=== PATIENT | female | born 1970 | race Caucasian/White ===

== ENCOUNTER → 2016-08-28 | Outpatient (CLI) | payer BC ==
[~2016-08-28] MED LIST: CITA20TA4 PO; IBUP-1050 PO; LISI-461 PO; NORE1TAB50 PO
--- NOTE | 2016-08-28 16:18 | MAMMOGRAPHY REPORT ---
BILATERAL DIGITAL SCREENING MAMMOGRAM TOMOSYNTHESIS WITH CAD: 08/28/2016 CLINICAL HISTORY: Routine screening. Patient has no complaints. TECHNIQUE: Breast tomosynthesis in addition to standard 2D mammography was performed. Current study was also evaluated with a Computer Aided Detection (CAD) system. COMPARISON: Comparison is made to exams dated: 08/23/2015 mammogram, 08/19/2014 mammogram, 08/25/2013 ultrasound, 08/25/2013 mammogram, 08/15/2012 mammogram, and 08/14/2011 mammogram - [facility]. BREAST COMPOSITION: The tissue of both breasts is heterogeneously dense, which may obscure small ma sses. FINDINGS: The parenchymal pattern is similar to prior exams. No developing mass, architectural dis tortion or cluster of suspicious microcalcifications is seen in either breast. IMPRESSION: ACR BI-RADS CATEGORY 2: BENIGN There is no mammographic evidence of malignancy. A 1 year screening mammogram is recommended. The p atient will receive written notification of the results. Approximately 10% of breast cancers are not detected with mammography. A negative mammographic repor t should not delay biopsy if a clinically suggestive mass is present. Michaela Bell M.D. ay/:08/28/2016 15:51:47 Film Archivist: Jada SOMERS(R)(M[place]), [facility] letter sent: Normal 1/2 BI-RADS Code: ACR BI-RADS Category 2: Benign
== END | disposition home or self-care (01) ==
LOC: C.MAMM 11:01
PROVIDERS: ATTEND Family Medicine
DX: Z12.31 Encounter for screening mammogram for malignant neoplasm of breast (principal)

== ENCOUNTER → 2016-09-27 | Day surgery (SDC) | payer BC ==
[2016-09-13 09:50] VITALS: Ht 157.5 cm; Wt 84.5 kg
[2016-09-18 11:17] LABS: BASO % 0.2 %; BASO ABS # 0.02 K/uL (0-0.2); COMPLETE YES; IG% 0.1 %; LYMPH % 25.5 %; LYMPH ABS # 2.05 K/uL (1.2-3.4); MEAN CELL VOLUME 89.8 fL (80-100); MEAN CORPUSCULAR HEMOGLOBIN 30.3 pg (25-34); MEAN CORPUSCULAR HGB CONC 33.7 g/dl (32-36); MEAN PLATELET VOLUME 10.4 fL (7.4-10.4); MONO % 6.6 %; NEUT % 65.6 %; PLATELET COUNT 312 K/uL (130-400); RED BLOOD COUNT 4.79 M/uL (4.2-5.4); WHITE BLOOD COUNT 8.04 K/uL (4.8-10.8)
--- NOTE | 2016-09-20 14:00 | HISTORY & PHYSICAL EXAMINATION ---
DATE OF ADMISSION: 09/27/2016 CHIEF COMPLAINT: Endocervical mass. HISTORY OF PRESENT ILLNESS: The patient is a 46-year-old 0 who has been a patient of Dr. Genao and now presents to me for annual exam. She is premenopausal. She notes her menstrual periods have been normal and her cycles have been regular, occurring every 28 days. She notes that her periods last for 3-5 days. Additional history at this time, the patient has a lot of discharge before and after her period. She has a history of laparotomy for endometriosis and on review of that report from over 20 years ago she had bilateral ovarian cystectomies, significant lysis of adhesions, ureterolysis and resection and reanastomosis of her bowel. She has been on oral contraceptives since that time with good response until lately. For the last several months, she has been having pain in the right lower quadrant. She notes some brown spotting if she does any heavy lifting. She has persistent blood in her urine. She needs an ultrasound for her kidney. She has pain with intercourse that has increased over this time as well. The patient also recently was started on blood pressure medications for hypertension and we discussed that she would need to come off of her oral contraceptive pills because of this new contraindication. In the process of the workup of her pain, the patient underwent a pelvic ultrasound. This revealed a very small uterine with a lining that measured 6.8 mm. The myometrium is heterogeneous with no obvious masses. The endometrium was difficult to determine. There was noted to be a 2.2 x 0.9 x 0.5 cm mass within the cervix. The right ovary was not seen. The left ovary was small and normal. I was unable to perform an SIS on this patient because of cervical stenosis nor was I able to dilate the cervix and the procedure was abandoned. We had a long discussion about what to do from this point. I do not think she needs a D\T\C hysteroscopy to evaluate the mass and obtain an evaluation of the endometrium with a biopsy. PAST OBSTETRICAL AND GYNECOLOGICAL HISTORY: As noted above. ALLERGIES: No known drug allergies. MEDICATIONS: Advil, citalopram, norethindrone. PAST MEDICAL HISTORY: The patient has hypertension, but she denies thyroid disease, asthma, heart disease, heart murmur, diabetes, and kidney or liver problems. PAST SURGICAL HISTORY: She has had wisdom teeth removal, bilateral ovarian cystectomies with ureterolysis and lysis of adhesions and small bowel resection and reanastomosis. FAMILY HISTORY: She denies breast, colorectal or uterine or ovarian cancer. PHYSICAL EXAMINATION: GENERAL: This is a well-developed, well-nourished white female in no acute distress. VITAL SIGNS: Blood pressure 146/86, weight 187.3 pounds, height 5 feet 2 inches. NECK: Supple without thyromegaly or lymphadenopathy. CHEST: Clear to auscultation bilaterally. CARDIOVASCULAR: Regular rate and rhythm without murmurs, gallops or rubs. BACK: Without costovertebral angle tenderness. ABDOMEN: Soft, nontender, nondistended, without appreciable masses. PELVIC: Normal external female genitalia. Normal Bartholin, urethra and Ovett glands. The urethra is normal in appearance. The vagina is pink, moist showing good rugae. No active vaginal bleeding. The cervix was normal and nulliparous without discharge. On bimanual exam, the cervix was soft without cervical motion tenderness. The uterus was small, midline, smooth, mobile and nontender. There were no appreciable adnexal masses; however, there was some tenderness to the palpation in the right adnexa. Rectovaginal exam revealed no abnormalities, no tenderness and no masses, no thickening. ASSESSMENT AND PLAN: Carolyn is a 46-year-old 0 with a significant history of endometriosis who has noted increased spotting and bleeding on her oral contraceptive pills as well as increasing right lower quadrant pain and dyspareunia. On ultrasound, there appears to be a cervical mass and the endometrium was not well visualized. I was unable to perform an SIS. I have recommended a dilatation and curettage, hysteroscopy with removal of mass and she is admitted for that.
[~2016-09-27] VITALS: Ht 157.5 cm; Wt 84.5 kg
[~2016-09-27] MED LIST changes: +ATROPINE SULFATE 0.1 MG/ML 5ML SYR IV PRN; +DEXAMETHASONE SOD INJ 4 MG/ML VIAL ONE; +EpHEDrine SULFATE INJ 50 MG/ML AMP IV PRN; +FENTANYL CITRATE INJ 50 MCG/1 ML 2 ML VIAL IV PRN; +FENTANYL CITRATE INJ 50 MCG/1 ML 2 ML VIAL ONE; +IBUPROFEN 600 MG TAB PO PRN; +KETOROLAC TROMETHAMINE 30 MG/ML VIAL ONE; +LABETALOL HCL IV 5 MG/ML 20ML ONE; +LACTATED RINGER'S 1000ML 1,000 ML IV SCH; +LIDOCAINE HCL 2% 2 ML VIAL (20MG/ML) ONE; +MIDAZOLAM HCL 1 MG/ML 2ML VIAL ONE; +MoRPHine SULFATE 2 MG/ML CARP IV PRN; +MoRPHine SULFATE 4 MG/ML 1 ML CARP\\VIAL IV PRN; +ONDANSETRON INJ 2 MG/ML 2 ML VIAL IV PRN; +ONDANSETRON INJ 2 MG/ML 2 ML VIAL ONE; +OXYCODONE/ACETAMINOPHEN 5-325 TAB PO PRN; +PROMETHAZINE HCL INJ 6.25 MG in SODIUM CHLORIDE 0.9% 50ML 50 ML IV PRN; +PROPOFOL IV EMULSION 10 MG/ML 20 ML VIAL IV ONE; +SODIUM CHLORIDE 0.9% 1000ML 1,000 ML IV SCH
--- NOTE | 2016-09-27 07:47 | History & Physical Bridge - SC ---
H&P Re-Evaluation Bridge Note: I have examined the patient, reviewed the History & Physical and in the interval since the performance of the History & Physical I have noted the following changes of clinical significance: No changes noted
--- NOTE | 2016-09-27 08:42 | Discharge Instructions-SurgCtr ---
Discharge Instructions Visit Reason for Visit: Cervical Mass, Abdominal Pain Discharge Discharge Diagnosis / Problem: s/p D&C/hysteroscopy and removal of mass Discharge Goals Goal(s): Specific goals Activity Recommendations Activity Limitations: per Instructions/Follow-up section Anesthesia . Post Anesthesia Instructions: If you have had General Anesthesia or IV Sedation: * Do not drive today. * Resume driving when surgeon permits. * Do not make important decisions or sign legal documents today. * Call surgeon for: 1. Temperature elevations greater than 101 degrees F. 2. Uncontrollable pain. 3. Excessive bleeding. 4. Persistent nausea and vomiting. 5. Medication intolerance (nausea, vomiting or rash). * For nausea and vomiting use only clear liquids such as: tea, soda, bouillon until nausea subsides, then gradually increase diet as tolerated. * If you have any concerns or questions, call your surgeon's office. If physician is unavailable and it is an emergency, call 911 or go to the nearest emergency room. . Instructions / Follow-Up Instructions / Follow-Up ACTIVITY RECOMMENDATIONS: * Avoid tampons, douching, hot tubs, pools, and intercourse until bleeding has stopped. * May shower as usual. * No strenuous activity for 24-48 hours. After 24-48 hours, you may do anything you feel like doing (driving and sports are okay). SPECIAL CARE INSTRUCTIONS: Special Diet: * Mild nausea may occur in the immediate post-operative period. * Take clear liquids such as tea, cola or bouillon until all nausea has subsided; you may then resume your normal diet. Special Care: * Light bleeding and vaginal spotting can last from a few days to 3-4 weeks. Call your doctor if bleeding becomes heavier than the heaviest part of your period. * Check your temperature twice a day for one week. If it goes above 100.4 degrees Fahrenheit (38.0 Celsius), notify your doctor. * Call your doctor's office for an appointment for 6 weeks after your surgery. FOLLOW-UP VISIT: Call your doctor's office for an appointment for 6 weeks after your surgery. Diet Recommendations Home Diet: no limitations, resume previous diet Procedures Procedures Performed: Dilatation And Curettage, Hysteroscopy, Polypectomy with Myosure, Removal Of Cervical Mass Pending Studies Studies pending at discharge: no Medical Emergencies . Who to Call and When: Medical Emergencies: If at any time you feel your situation is an emergency, please call 911 immediately. . Non-Emergent Contact Non-Emergency issues call your: Car Carder . . "Provider Documentation" section prepared by Staci Godinez.
--- NOTE | 2016-09-27 08:43 | [facility] Post Operative Brief Note ---
Immediate Operative Summary Operative Date Sep 27, 2016. Pre-Operative Diagnosis Endometrial Mass Post-Operative Diagnosis Same Procedure(s) Performed Dilatation And Curettage, Hysteroscopy, Polypectomy with Myosure, Removal Of Cervical Mass Surgeon Dr Godinez Director Of National Sales Surgeon(s) None Estimated Blood Loss 50ml Findings uterus sounded to 7cm, uterine cavity small, smooth and no masses. both tubal ostia visualized, two small lesions in the cervix--one small polypoid lesion and one small cystic lesion. Specimens A: Endometrial Currettings B: Cervical Mass Drains none Anesthesia lma Complication(s) None Disposition Recovery Room / PACU
[2016-09-27 09:42] VITALS: TEMP 36.6
--- NOTE | 2016-09-27 09:51 | Anesthesia Progress Nt - [facility] ---
Anesthesia Post Op Note Date & Time Sep 27, 2016 at 09:51 Vital Signs Pain Intensity: 0 Vital Signs Past 12 Hours Date Time Temp Pulse Resp B/P Pulse Ox O2 Delivery O2 Flow Rate FiO2 09/27/16 09:42 36.6 81 16 153/97 98 Room Air 09/27/16 09:15 84 15 94 09/27/16 09:15 37.0 81 12 173/107 98 Room Air 09/27/16 09:15 84 15 09/27/16 09:14 173/107 09/27/16 09:10 83 17 99 09/27/16 09:10 83 17 09/27/16 09:09 171/117 09/27/16 09:05 82 16 09/27/16 09:05 82 16 168/107 95 09/27/16 09:00 78 16 96 09/27/16 09:00 79 16 09/27/16 08:59 158/105 09/27/16 08:55 81 17 100 09/27/16 08:55 82 17 09/27/16 08:54 173/110 09/27/16 08:50 37.2 79 20 160/111 96 Mask 6 09/27/16 08:50 83 26 96 09/27/16 08:50 82 26 09/27/16 06:29 37.0 87 18 167/105 96 Room Air Notes Mental Status: alert / awake / arousable, participated in evaluation Pt Amnestic to Procedure: Yes Nausea / Vomiting: adequately controlled Pain: adequately controlled Airway Patency, RR, SpO2: stable & adequate BP & HR: stable & adequate Hydration State: stable & adequate Anesthetic Complications: no major complications apparent BP was within 10% of her preoperative values and she was asymptomatic at discharge. I suspect that her BP is poorly controlled as an outpatient and she was recommended to follow up with her primary care doctor.
--- NOTE | 2016-09-27 10:04 | Medical Student: [facility] ---
Immediate Operative Summary Operative Date Sep 27, 2016. Pre-Operative Diagnosis Endocervical mass Post-Operative Diagnosis Same Procedure(s) Performed Dilation and Curettage, Hysteroscopy, Polypectomy with Myosure, and removal of cervical mass Surgeon Dr. Godinez Research And Development Scientist Surgeon(s) None Estimated Blood Loss 50 cc Findings Uterus sounds to 7cm. Uterus small, smooth and with no masses. Tubal ostia were visualized. Two lesions appreciated in the cervix - one was polypoid and one was cystic. Specimens A) Cervical Mass B) Endometrial Curettings Drains None Anesthesia LMA Complication(s) None Disposition Recovery Room / PACU
[2016-09-27 10:09] VITALS: BP 150/99; PULSE 81; O2SAT 98
--- NOTE | 2016-09-27 10:45 | OPERATIVE REPORT ---
DATE OF OPERATION: 09/27/2016 PREOPERATIVE DIAGNOSIS: Cervical mass. POSTOPERATIVE DIAGNOSIS: Same. PROCEDURES: D\T\C, hysteroscopy with removal of cervical mass by MyoSure. SURGEON: Dr. Staci Godinez. ANESTHESIA: General per laryngeal mask. ESTIMATED BLOOD LOSS: 50 mL. FLUIDS: 1100 mL, deficit 325 mL. INDICATIONS: Carolyn is a 46-year-old 0 with a known history of endometriosis, is having increasing pelvic pain and discomfort as well as some dysfunctional bleeding on her pills. She underwent an ultrasound, which revealed a lining that was 6.8 mm with questionable lower uterine segment mass. An attempt at an SIS revealed an inability to complete SIS and so the procedure was terminated. She presents now for D\T\C. FINDINGS: Uterus does sound to 7 cm. The hysteroscope was introduced. There lining appears thin in the endometrium. Both tubal ostia were visualized. There were 2 small cervical masses, one was polypoid and the other was cystic that were removed using MyoSure. COMPLICATIONS: None. DRAINS: None. DISPOSITION: To recovery room in stable condition. DESCRIPTION OF PROCEDURE: The patient was taken to the operating room, where she was identified verbally and by bracelet. She was placed in dorsal supine position, where general anesthesia was induced without difficulty. She was then placed in dorsal lithotomy position in [facility]ups and prepped and draped in normal sterile fashion. Timeout was held identifying correct patient, procedure and positioning. The bladder was drained of urine and exam under anesthesia revealed a small mobile, slightly retroverted uterus. There were no appreciable adnexal masses. A weighted speculum was then placed in the posterior vagina. The anterior lip of the cervix was grasped with a single tooth tenaculum. The uterus was sounded to 7 cm and then was eventually dilated to a #23 Betty dilator with difficulty. A cervical laceration was created with the tenaculum. I was finally able to introduce the hysteroscope with the above noted normal findings of the uterus. The 2 small cervical masses were removed with MyoSure and a curettage was performed. The procedure was terminated. I then needed to use a stitch of 3-0 Vicryl to reapproximate the edges of the cervix where the laceration occurred. The procedure was thus terminated. All sponge, lap and needle counts were correct x2. The patient tolerated the procedure well and was taken to recovery room in stable condition. I attest to the content of the Intraoperative Record and any orders documented therein. Any exceptio ns are noted below.
== END | disposition home or self-care (01) ==
LOC: X.SURG 06:17
PROVIDERS: ATTEND Obstetrics & Gynecology
DX: N84.0 Polyp of corpus uteri (principal); N88.8 Other specified noninflammatory disorders of cervix uteri; I10 Essential (primary) hypertension; R01.1 Cardiac murmur, unspecified; E11.9 Type 2 diabetes mellitus without complications; Z98.890 Other specified postprocedural states; J45.909 Unspecified asthma, uncomplicated

== ENCOUNTER → 2016-12-04 | Outpatient (CLI) | payer BC ==
[~2016-12-04] MED LIST changes: -ATROPINE SULFATE 0.1 MG/ML 5ML SYR IV PRN; -DEXAMETHASONE SOD INJ 4 MG/ML VIAL ONE; -EpHEDrine SULFATE INJ 50 MG/ML AMP IV PRN; -FENTANYL CITRATE INJ 50 MCG/1 ML 2 ML VIAL IV PRN; -FENTANYL CITRATE INJ 50 MCG/1 ML 2 ML VIAL ONE; -IBUPROFEN 600 MG TAB PO PRN; -KETOROLAC TROMETHAMINE 30 MG/ML VIAL ONE; -LABETALOL HCL IV 5 MG/ML 20ML ONE; -LACTATED RINGER'S 1000ML 1,000 ML IV SCH; -LIDOCAINE HCL 2% 2 ML VIAL (20MG/ML) ONE; -MIDAZOLAM HCL 1 MG/ML 2ML VIAL ONE; -MoRPHine SULFATE 2 MG/ML CARP IV PRN; -MoRPHine SULFATE 4 MG/ML 1 ML CARP\\VIAL IV PRN; -ONDANSETRON INJ 2 MG/ML 2 ML VIAL IV PRN; -ONDANSETRON INJ 2 MG/ML 2 ML VIAL ONE; -OXYCODONE/ACETAMINOPHEN 5-325 TAB PO PRN; -PROMETHAZINE HCL INJ 6.25 MG in SODIUM CHLORIDE 0.9% 50ML 50 ML IV PRN; -PROPOFOL IV EMULSION 10 MG/ML 20 ML VIAL IV ONE; -SODIUM CHLORIDE 0.9% 1000ML 1,000 ML IV SCH
[2016-12-04 10:22] LABS: PREG INTERNAL NEGATIVE QC NEG CLEAR BACKGROUND; PREG INTERNAL POSITIVE QC POS CONTROL LINE
== END | disposition home or self-care (01) ==
LOC: C.LAB1850 09:28
PROVIDERS: ATTEND Obstetrics & Gynecology
DX: R10.31 Right lower quadrant pain (principal)

== ENCOUNTER → 2017-07-30 | Outpatient (CLI) | payer BC ==
[~2017-07-30] MED LIST changes: +CALC250T8 PO; +CHOL1000 PO; +METO25TA3 PO
== END | disposition home or self-care (01) ==
LOC: C.PAPS 11:15
PROVIDERS: ATTEND Obstetrics & Gynecology
DX: Z01.419 Encounter for gynecological examination (general) (routine) without abnormal findings (principal)

== ENCOUNTER → 2017-08-29 | Outpatient (CLI) | payer BC ==
[~2017-08-29] MED LIST changes: -CALC250T8 PO; -CHOL1000 PO; -METO25TA3 PO
--- NOTE | 2017-08-30 13:23 | MAMMOGRAPHY REPORT ---
BILATERAL DIGITAL SCREENING MAMMOGRAM TOMOSYNTHESIS WITH CAD: 08/29/2017 CLINICAL HISTORY: Routine screening. TECHNIQUE: Breast tomosynthesis in addition to standard 2D mammography was performed. Current study was also evaluated with a Computer Aided Detection (CAD) system. COMPARISON: Comparison is made to exams dated: 08/28/2016 mammogram, 08/23/2015 mammogram, 08/19/2014 m ammogram, 08/18/2013 mammogram, 08/15/2012 mammogram, and 08/14/2011 mammogram - [facility] enter. BREAST COMPOSITION: There are scattered areas of fibroglandular density in both breasts. FINDINGS: There is a new 8 mm spiculated mass within the right lower inner quadrant middle depth, for which ultrasound and possible additional spot compression views are recommended for further evaluati on. The remainder of both breasts are stable compared to prior exams, without suspicious masses, calcific ations, or areas of architectural distortion noted. IMPRESSION: ACR BI-RADS CATEGORY 0: INCOMPLETE EVALUATION: NEED ADDITIONAL IMAGING EVALUATION Right breast mass, for which additional imaging evaluation is recommended. The patient will be valdes d to schedule an appointment. Approximately 10% of breast cancers are not detected with mammography. A negative mammographic report should not delay biopsy if a clinically suggestive mass is present. Amy Schmidt M.D. /:08/29/2017 13:37:57 Shipwright: Marco SOMERS(R)(M), [facility] letter sent: Addl Imaging 0 BI-RADS Code: ACR BI-RADS Category 0: Incomplete Evaluation: Need Additional Imaging Evaluation
== END | disposition home or self-care (01) ==
LOC: C.MAMM 10:55
PROVIDERS: ATTEND Family Medicine
DX: Z12.31 Encounter for screening mammogram for malignant neoplasm of breast (principal); N63.14 Unspecified lump in the right breast, lower inner quadrant

== ENCOUNTER → 2017-09-16 | Outpatient (CLI) | payer BC ==
--- NOTE | 2017-09-16 15:20 | MAMMOGRAPHY REPORT ---
ULTRASOUND OF RIGHT BREAST: 09/16/2017 CLINICAL HISTORY: 47-year-old woman called back from screening mammography for a spiculated right demetrio ast mass. Upon diagnostic consultation, the patient reported that she feels an area of firmness and occasional abnormal sensation in the 6:00 right breast, which she also pointed out to me. COMPARISON: Comparison is made to exams dated: 08/29/2017 mammogram, 08/28/2016 mammogram, 08/23/2015 m ammogram, 08/19/2014 mammogram, 08/25/2013 ultrasound, and 08/25/2013 mammogram - [facility]. FINDINGS: Targeted ultrasound was performed in the area of focal firmness/lump pointed out by the pat ient, in the 6:00 right breast, 1 cm from the nipple. In the area of concern, there is an angular, t olerated than wide, hypoechoic solid vascular mass measuring 5.8 x 5.8 x 5.9 mm. This correlates as palpated, as well as with the mammographic mass and is suspicious for malignancy. Additional sonographic evaluation was performed in the right axilla. There is a prominent lobulated lymph node measuring 12 mm, with eccentric cortical thickening measuring up to 3.3 mm. This is indet erminate and definitive characterization with an ultrasound-guided core biopsy is recommended to excl ude metastatic disease. It should be noted that the lymph node seen on the MLO views appear similar in size and lobulated contour comparing to prior mammograms. IMPRESSION: ACR BI-RADS CATEGORY 5: HIGHLY SUGGESTIVE OF MALIGNANCY - FOLLOW-UP RECOMMENDED 1. Ultrasound-guided core biopsy is recommend for a suspicious spiculated solid 5.9 mm mass in the 6 :00 right breast, which is also palpable by the patient. 2. Ultrasound guided core biopsy is recommended for a right axillary lymph node with eccentric corti ty thickening. These results and recommendations were discussed with the patient at the time of the exam. She tenta tively scheduled the right breast and axillary lymph node biopsies prior to leaving our department. Michaela Bell M.D. ay/:09/16/2017 10:26:21 Outreach Manager: Dr. Michaela Bell, [facility] letter sent: Abnormal 4/5 BI-RADS Code: ACR BI-RADS Category 5: Highly Suggestive Of Malignancy
== END | disposition home or self-care (01) ==
LOC: C.MAMM 10:03
PROVIDERS: ATTEND Family Medicine
DX: N63.14 Unspecified lump in the right breast, lower inner quadrant (principal)

== ENCOUNTER → 2017-10-02 | Outpatient (CLI) | payer BC ==
--- NOTE | 2017-10-02 11:07 | Discharge Instructions ---
Discharge Instructions Procedure Procedure Date: Oct 02, 2017. Reason for visit: Right Breast Mass/Right Axillary Node. Discharge Discharge Date: Oct 02, 2017. Discharge Diagnosis: post right breast mass ultrasound guided core biopsy Instructions Activity Recommendations: Additional Limitations (see below) Return to School/Work: no limitations Recommended Home Diet: No Limitations Provider Instructions: ACTIVITY RECOMMENDATIONS: * No lifting, pushing, pulling or exercising the affected side for three days. RETURN TO SCHOOL/WORK: * You may return to work/school after the procedure, but do not perform any strenuous activities for 24 to 48 hours. MEDICATIONS: * Tylenol (two 325 mg) every four to six hours if needed for mild pain (if not allergic to Tylenol). DIET: * Resume previous diet. SPECIAL CARE INSTRUCTIONS: * Keep biopsy site dry for 24 hours. May shower after 24 hours, but do not soak (bathe) incision. * May remove Tegaderm (plastic patch) tomorrow AFTER showering. * Leave the steri-strips on for one week. Allow the steri-strips to fall off by themselves. If not off after one week, you may remove them. You may place a Bandaid crosswise over the strips, if desired. * Apply ice 10 minutes on and 10 minutes off as needed. * Wear a bra at bedtime to sleep more comfortably for 2-3 days. * Your referring physician should have the results after approximately 5 to 7 business days. * Call for unusual bleeding, fever, drainage, etc or if you have any questions call [phone] during normal business hours or after hours call Dr Bell, . FOLLOW UP VISIT: Follow-up with Referring Physician as scheduled. Allergies Coded Allergies: No Known Allergies (Verified , 09/27/16) Veronika Otero Recommendations: Call your doctor if: * Temperature above 101 degrees * Pain not relieved by pain medicine ordered * There is increased drainage or redness from any incision * You have any unanswered questions or concerns. Your Doctors Instructions noted above were prepared by provider Michaela Bell. Patient Signature Section: Patient Instructions Signature Page Carolyn Sanchez Patient (or Guardian) Signature/Date: I have read and understand the instructions given to me by my caregivers. Caregiver/RN/Doctor Signature/Date: The above-named patient and/or guardian has received patient instructions on this date. + Original Patient Signature Page (only) stays with chart. Please make copy for patient.
--- NOTE | 2017-10-02 15:53 | MAMMOGRAPHY REPORT ---
MULTIPLE ULTRASOUND GUIDED BIOPSIES RIGHT BREAST: 10/02/2017 CLINICAL HISTORY: 47-year-old woman presents for ultrasound-guided core biopsy of a suspicious spicul ated 5.9 mm mass in the 6:00 right breast. Also ultrasound guided core biopsy of a right axillary ly mph node with eccentric thickened cortex. COMPARISON: Comparison is made to exams dated: 08/29/2017 mammogram, 08/28/2016 mammogram, 09/16/2017 u ltrasound, 08/23/2015 mammogram, 08/19/2014 mammogram, and 08/25/2013 ultrasound - [facility]. PATIENT CONSENT: The procedure, risks and benefits were discussed with the patient and informed conse nt was obtained both verbally and in writing. Specific risks to this procedure include: bleeding, in fection, puncture of adjacent structure, nontarget biopsy, sampling error, pain, metal allergy and me dication reaction. PROCEDURE DESCRIPTION: A time out was performed and the right breast and right axilla were confirmed as sites for biopsy. First the irregular and spiculated 5.9 mm mass in the 6:00 right breast was id entified and targeted for biopsy. The skin of the right breast was prepped and draped in the usual sterile fashion. Subcutaneous and intraparenchymal 1% buffered lidocaine, with and without epinephrin e, was administered as local anesthesia. A skin incision was made. Through the incision, 4 samples w ere taken with a 14 gauge Achieve biopsy device. A ribbon shaped metallic marker was placed at the bi opsy site. Hemostasis was achieved after manual compression. The patient tolerated the procedure well and there was no immediate complication. Second the right axillary lymph node with eccentric thickened cortex was identified and targeted for biopsy. The right axillary region was prepped and draped in the usual sterile fashion. Additional 1 % buffered lidocaine with and without epinephrine was administered as local anesthesia. A skin incis ion was made. Through the incision, 3 samples were taken with an 18-gauge quick core biopsy device. An orb-shaped metallic marker was placed at the biopsy site. Hemostasis was achieved after manual com pression. The patient tolerated the procedure well and there was no immediate complication. All of the samples were sent to the pathology department in an appropriately labeled containers. Postprocedure right CC and ML tomosynthesis images were obtained. A new ribbon-shaped biopsy marker clip is seen within the speculative mass in the 6:00 right breast. An orb-shaped biopsy marker clip is identified within a right axillary lymph node. No postbiopsy hematoma identified at either site. Pathology is pending. IMPRESSION: ULTRASOUND GUIDED BIOPSY 1. Status post ultrasound guided core biopsy of a suspicious spiculated 5.9 mm mass in the 6:00 righ t breast, with biopsy marker placed at the site. 2. Status post ultrasound guided core biopsy of a right axillary lymph node with eccentric thickened cortex, with biopsy marker placed at the site. The patient will receive notification of the biopsy results from her referring physician. Michaela Bell M.D. ay/:10/02/2017 13:26:17 Tool Inspector: Marly DANG)(M), [facility]
--- NOTE | 2017-10-02 15:57 | MAMMOGRAPHY REPORT ---
UNILATERAL RIGHT DIGITAL DIAGNOSTIC MAMMOGRAM TOMOSYNTHESIS: 10/02/2017 CLINICAL HISTORY: Status post ultrasound-guided core biopsy of a suspicious mass in the 6:00 right br east, and right axillary lymph node. Please refer to the report from right breast ultrasound guided core biopsy performed at the same time for full detail. IMPRESSION: POST PROCEDURE IMAGING FOR MARKER PLACEMENT Please refer to the report from right breast ultrasound guided core biopsy performed at the same time for full detail. Approximately 10% of breast cancers are not detected with mammography. A negative mammographic report should not delay biopsy if a clinically suggestive mass is present. Michaela Bell M.D. ay/:10/02/2017 11:06:29 Supervisor [employer]: Marly DANG)(M), [facility] BI-RADS Code: Post Procedure Imaging For Marker Placement
--- NOTE | 2017-10-04 10:41 | MAMMOGRAPHY REPORT ---
MULTIPLE ULTRASOUND GUIDED BIOPSIES RIGHT BREAST: 10/02/2017 CLINICAL HISTORY: 47-year-old woman presents for ultrasound-guided core biopsy of a suspicious spicul ated 5.9 mm mass in the 6:00 right breast. Also ultrasound guided core biopsy of a right axillary ly mph node with eccentric thickened cortex. COMPARISON: Comparison is made to exams dated: 08/29/2017 mammogram, 08/28/2016 mammogram, 09/16/2017 u ltrasound, 08/23/2015 mammogram, 08/19/2014 mammogram, and 08/25/2013 ultrasound - [facility]. PATIENT CONSENT: The procedure, risks and benefits were discussed with the patient and informed conse nt was obtained both verbally and in writing. Specific risks to this procedure include: bleeding, inf ection, puncture of adjacent structure, nontarget biopsy, sampling error, pain, metal allergy and me dication reaction. PROCEDURE DESCRIPTION: A time out was performed and the right breast and right axilla were confirmed as sites for biopsy. First the irregular and spiculated 5.9 mm mass in the 6:00 right breast was alison ntified and targeted for biopsy. The skin of the right breast was prepped and draped in the usual s terile fashion. Subcutaneous and intraparenchymal 1% buffered lidocaine, with and without epinephrin e, was administered as local anesthesia. A skin incision was made. Through the incision, 4 samples w ere taken with a 14 gauge Achieve biopsy device. A ribbon shaped metallic marker was placed at the b iopsy site. Hemostasis was achieved after manual compression. The patient tolerated the procedure wel l and there was no immediate complication. Second the right axillary lymph node with eccentric thickened cortex was identified and targeted for biopsy. The right axillary region was prepped and draped in the usual sterile fashion. Additional 1% buffered lidocaine with and without epinephrine was administered as local anesthesia. A skin incisio n was made. Through the incision, 3 samples were taken with an 18-gauge quick core biopsy device. An orb-shaped metallic marker was placed at the biopsy site. Hemostasis was achieved after manual compr ession. The patient tolerated the procedure well and there was no immediate complication. All of the samples were sent to the pathology department in an appropriately labeled containers. Postprocedure right CC and ML tomosynthesis images were obtained. A new ribbon-shaped biopsy marker c lip is seen within the speculative mass in the 6:00 right breast. An orb-shaped biopsy marker clip is identified within a right axillary lymph node. No postbiopsy hematoma identified at either site. Pat hology is pending. IMPRESSION: ULTRASOUND GUIDED BIOPSY 1. Status post ultrasound guided core biopsy of a suspicious spiculated 5.9 mm mass in the 6:00 righ t breast, with biopsy marker placed at the site. 2. Status post ultrasound guided core biopsy of a right axillary lymph node with eccentric thickened cortex, with biopsy marker placed at the site. The patient will receive notification of the biopsy results from her referring physician. Michaela Bell M.D. ay/:10/02/2017 13:26:00 Medical Office Clerk: Marly DANG)([place]), [facility]
== END | disposition home or self-care (01) ==
LOC: C.MAMM 09:49
PROVIDERS: ATTEND Family Medicine
DX: C50.911 Malignant neoplasm of unspecified site of right female breast (principal); R59.0 Localized enlarged lymph nodes

== ENCOUNTER → 2017-10-31 | Outpatient (CLI) | payer BC ==
[~2017-10-31] MED LIST changes: +GADAVIST IV PRN
--- NOTE | 2017-11-01 07:22 | MAMMOGRAPHY REPORT ---
BREAST MRI OF BOTH BREASTS : 10/31/2017 CLINICAL HISTORY: Recent ultrasound-guided core needle biopsy of a right 6:00 breast mass which yield ed invasive ductal carcinoma on pathology. A prominent right axillary lymph node was also biopsied w hich was negative for malignancy. COMPARISON: Comparison is made to exams dated: 10/02/2017 mammogram, 10/02/2017 ultrasound biopsy, 09/05 ultrasound, 08/29/2017 mammogram, 08/28/2016 mammogram, and 08/23/2015 mammogram - [facility]. Technique: The patient was placed prone in a dedicated breast imaging coil. Precontrast axial T1-abeba ghted, axial T2-weighted fat saturation, and axial T1-weighted fat saturation images were obtained. After the administration of 9 mL of Gadavist IV contrast, sequential T1-weighted fat saturation image s were obtained. Subtraction images were obtained of the dynamic contrast enhanced sequences, and 3- D reformations were performed. The [employer] software was used for kinetic analysis. Findings: Right breast: There is mild background parenchymal enhancement. There is an irregular enhancing 7 x 9 mm mass within the right 6:00 anterior breast, with clip artifact seen within the mass (series 1050 1 image 97); findings are consistent with the biopsy-proven malignancy. The mass demonstrates a mixe d kinetic pattern including washout kinetics. The remainder of the right breast demonstrates no susp icious enhancing masses or areas of abnormal non-mass enhancement. A circumscribed enhancing 4 mm ma ss is seen within the right upper outer quadrant posteriorly, which demonstrates corresponding T2 hyp erintensity and a benign-type persistent kinetic pattern (series 52285 image 70). This likely corres ponds with a low-density benign-appearing mammographic mass which appears stable mammographically gloria ing back to at least the 2016 exam on the tomosynthesis images; given the benign morphology on MRI an d given the long-term stability, the finding is considered benign. Left breast: There is mild background parenchymal enhancement. There are no suspicious enhancing mas ses or areas of abnormal non-mass enhancement within the left breast. Clip artifact is seen within the right axilla from recent biopsy of a right axillary lymph node which was negative for malignancy. The axillary lymph nodes are symmetric bilaterally without clear evide nce of adenopathy. The chest wall structures are negative. Visualized portions of the extramammary soft tissues are grossly unremarkable. Trace dependent pleural fluid is seen bilaterally. IMPRESSION: ACR BI-RADS CATEGORY 6: KNOWN BIOPSY PROVEN MALIGNANCY 1. Irregular enhancing 7 x 9 mm mass in the right 6:00 anterior breast, consistent with the biopsy-pr oven malignancy. No evidence of multifocal or multicentric disease. 2. No MRI evidence of malignancy in the left breast. Amy Schmidt M.D. ah/:10/31/2017 16:47:05 Swatch Folder: shuttler, [facility] letter sent: Birad 6 BI-RADS Code: ACR BI-RADS Category 6: Known Biopsy Proven Malignancy
== END | disposition home or self-care (01) ==
LOC: C.MRI 14:34
PROVIDERS: ATTEND Surgery
DX: Z01.818 Encounter for other preprocedural examination (principal); C50.311 Malignant neoplasm of lower-inner quadrant of right female breast; Z17.0 Estrogen receptor positive status [ER+]